=== PATIENT | female | born 1945 | race Caucasian/White ===

== ENCOUNTER 2016-10-07 09:44 | Emergency (ER) | payer MEDICARE, OTHER ==
[~2016-10-07] VITALS: Ht 160 cm; Wt 85.5 kg
[~2016-10-07 09:44] MED LIST: ASPI81 PO; DIOV80TA2 PO; DOXY100T PO; LORTA5 PO; PAXI25TA3 PO; ROSU20 PO; VITA500S3 SL
[2016-10-07 09:49] VITALS: BP 140/76; PULSE 79; RESP 16; TEMP 98; O2SAT 96
[2016-10-07] MEDS ORDERED: VALS80TA2 PO (10:07)
[2016-10-07] MEDS ORDERED: ROSU10 PO (10:07)
[2016-10-07] MEDS ORDERED: PARO25TA PO (10:07)
[2016-10-07] MEDS ORDERED: METF500T PO (10:07)
[2016-10-07] MEDS ORDERED: ASPI1TAB69 PO (10:07)
[2016-10-07] MEDS ORDERED: HYDR-3516 PO (10:38)
--- NOTE | 2016-10-07 10:38 | PD ---
HPI Chief Complaint: Musculoskeletal Complaint Time Seen by Provider: 10:34 Travel History International Travel<30 days: No Contact w/Intl Traveler<30days: No Traveled to known affect area: No History of Present Illness HPI Patient presents with complaints of right distal biceps pain for several months. Reports hearing something pop while lifting. Reports the recent development of a small bruise over the distal biceps with worsening of pain. She is medicated with her primary care provider and has undergone an MRI. Requesting pain control. PFSH Past Medical History Autoimmune Disease: No Anxiety: Yes Depression: Yes Heart Rhythm Problems: No Cancer: No Cardiac Catheterization: Yes Cardiovascular Problems: Yes High Cholesterol: Yes Chest Pain: No Congestive Heart Failure: No Coronary Artery Disease: Yes Diabetes: Yes ("BORDERLINE") Patient Takes Glucophage: Yes Diminished Hearing: No Endocrine: Yes Gastrointestinal Disorders: Yes (HX: GASTRIC BYPASS 1 YR AGO) GERD: No Glaucoma: No Genitourinary: No Hepatitis: No Hiatal Hernia: No Hypertension: Yes Immune Disorder: No Kidney Stones: Yes (1968) Musculoskeletal: No Neurologic: No Psychiatric: Yes Reproductive: No Respiratory: Yes Integumentary: No Sleep Apnea: Yes Thyroid Disease: No Ulcer: No Influenza Vaccination: Yes ?: Not Menopausal: Yes Past Surgical History Abdominal Surgery: Yes (BARIATRIC) Body Medical Devices: x2 cardiac stents Cardiac Surgery: Yes (2 stents RCA) Coronary Stent: Yes Ear Surgery: No Endocrine Surgery: Yes Eye Surgery: Yes (Lasik 20 years ago) Genitourinary Surgery: No Gynecologic Surgery: Yes Oral Surgery: Yes (1951 tonsilectomy) Thoracic Surgery: No Tonsillectomy: Yes Other Surgery: Yes (PILONIDAL CYST, FATTY TUMOR REMOVED FROM LEG) Social History Alcohol Use: Yes (DAILY BLOODY GAYLE'S) Tobacco Use: No Substance Use: No Allergies-Medications (Allergen,Severity, Reaction): Coded Allergies: No Known Allergies (Verified , 10/07/16) Reported Meds & Prescriptions Reported Meds & Active Scripts Active Reported Metformin (Metformin HCl) 500 Mg Tab 500 Mg PO DAILY With a meal Aspirin 81 Mg Tabdr 81 Mg PO DAILY Valsartan-Hydrochlorothiazide 80-12.5 Mg Tab 1 Tab PO DAILY Paroxetine ER (Paroxetine HCl) 25 Mg Tab 25 Mg PO DAILY Crestor (Rosuvastatin Calcium) 10 Mg Tab 10 Mg PO DAILY Review of Systems General / Constitutional: No: Fever Eyes: No: Visual changes HENT: No: Headaches Cardiovascular: No: Chest Pain or Discomfort Respiratory: No: Shortness of Breath Gastrointestinal: No: Abdominal Pain Genitourinary: No: Dysuria Musculoskeletal: No: Pain Skin: No Rash Neurologic: No: Weakness Psychiatric: No: Depression Endocrine: No: Polydipsia Hematologic/Lymphatic: No: Easy Bruising Physical Exam Narrative GENERAL: Well-nourished, well-developed patient. SKIN: Focused skin assessment warm/dry. HEAD: Normocephalic. EYES: No scleral icterus. No injection or drainage. NECK: Supple, trachea midline. No JVD or lymphadenopathy. CARDIOVASCULAR: Regular rate and rhythm without murmurs, gallops, or rubs. RESPIRATORY: Breath sounds equal bilaterally. No accessory muscle use. GASTROINTESTINAL: Abdomen soft, non-tender, nondistended. MUSCULOSKELETAL: No cyanosis, or edema. BACK: Nontender without obvious deformity. No CVA tenderness. Examination of the right biceps reveals small hematoma with ecchymosis measuring approximately 6-7 cm with pain/discomfort with flexion Data Data Last Documented VS Vital Signs Date Time Temp Pulse Resp B/P Pulse Ox O2 Delivery O2 Flow Rate FiO2 10/07/16 09:49 98.0 79 16 140/76 96 MDM Medical Decision Making Medical Screen Exam Complete: Yes Emergency Medical Condition: Yes Differential Diagnosis Biceps tear, biceps strain, hematoma Narrative Course Assessment and plan discussed with patient at bedside Diagnosis Primary Impression: Strain of right biceps Qualified Code: S46.211D - Strain of right biceps, subsequent encounter Patient Instructions: General Instructions Additional Instructions: Encouraged a sling for comfort, encouraged general range of motion exercises, discouraged any heavy lifting, follow-up with PCP to assess MRI and further plan of care Med/Other Pt SpecificInfo: Prescription(s) given Scripts Hydrocodone-Acetaminophen 5-325 mg Tab1 Tab PO Q6H PRN (PAIN) #30 TAB Ref 0 Prov:Bismark Kennedy MD 10/07/16 Disposition: 01 DISCHARGE HOME Condition: Good Bismark Kennedy MD Oct 07, 2016 10:38
== END 2016-10-07 10:48 | disposition home or self-care (01) ==
LOC: PHEFT 09:44
DX: S46.211A Strain of muscle, fascia and tendon of other parts of biceps, right arm, initial encounter (principal); F41.9 Anxiety disorder, unspecified; F32.9 Major depressive disorder, single episode, unspecified; E78.00 Pure hypercholesterolemia, unspecified; I25.10 Atherosclerotic heart disease of native coronary artery without angina pectoris; E11.9 Type 2 diabetes mellitus without complications; I10 Essential (primary) hypertension; X50.0XXA Overexertion from strenuous movement or load, initial encounter
CPT/HCPCS: 99283

== ENCOUNTER 2018-08-23 13:50 | Inpatient (IN) ==
[2018-08-23] MEDS ORDERED: Pantoprazole Inj 40 MG Vial IV.PUSH ONE (14:19)
--- NOTE | 2018-08-23 14:32 | ED ---
HPI General Chief complaint: Weakness Stated complaint: weakness/nausea/blood in stool Time Seen by Provider: 08/23/18 14:06 Source: patient Mode of arrival: ambulatory Limitations: no limitations History of Present Illness HPI narrative: 73-year-old female is complaining of severe weakness. She was an inpatient earlier in this month. She was admitted to the hospital after vomiting blood. She was given a bag of blood and had upper endoscopy which showed that she had a gastrojejunal ulcer at the anastomosis of her gastric bypass. There was no evidence of active bleeding at that time. She went home and started to feel a bit better but then has started to feel badly again. She saw her doctor yesterday and was having some trouble walking at that time. She has not been eating well. She has been passing black stool. She has gotten progressively weak over the last few days. She is a bit short of breath today. Related Data Home Medications Medication Instructions Recorded Confirmed Crestor PO HS 08/11/18 anastrozole 1 mg PO DAILY 08/11/18 08/23/18 aspirin [Aspir-81] 81 mg PO DAILY 08/11/18 08/23/18 metformin 500 mg PO DAILY 08/11/18 08/23/18 paroxetine HCl PO DAILY 08/11/18 valsartan-hydrochlorothiazide 1 tab PO DAILY 08/11/18 08/23/18 Previous Rx's Medication Instructions Recorded pantoprazole 40 mg PO BID 30 Days #120 tab 08/12/18 Allergies Allergy/AdvReac Type Severity Reaction Status Date / Time No Known Allergies Allergy Verified 08/11/18 04:30 Review of Systems Constitutional Reports poor appetite and Reports weakness Cardiovascular Denies chest pain Gastrointestinal Reports change in stool character, Reports dyspepsia and Reports loose stools PMFSH Medical History Medical History Breast cancer (Acute) Diabetes (Acute) Gastric ulcer (Acute) High cholesterol (Acute) Hypertension (Acute) Surgical History Surgical History H/O breast surgery (Acute) H/O gastric bypass (Acute) H/O heart artery stent (Acute) Social History Social History Substance History: No History of Abuse Second Hand Smoke Exposure: No Smoking Status: Former smoker Tobacco Type: Cigarettes How Often Do You Have a Drink Containing Alcohol: 2 to 3 times a week Recent Travel in [facility] within the Last 8 Weeks: No Recent Out of Country Travel within the Last 8 Weeks: No Immunization History Tetanus Immunization: <5 Years Exam Narrative Exam Narrative: GENERAL: Well-developed female. She is extremely pale SKIN: Focused skin assessment warm/dry. HEAD: Atraumatic. Normocephalic. EYES: Pupils equal and round. No scleral icterus. No injection or drainage. ENT: No nasal bleeding or discharge. Mucous membranes pink and moist. NECK: Trachea midline. No JVD. CARDIOVASCULAR: Regular rate and rhythm. No murmur appreciated. RESPIRATORY: No accessory muscle use. Clear to auscultation. Breath sounds equal bilaterally. GASTROINTESTINAL: Abdomen soft, there is mild diffuse tenderness r, nondistended. Hepatic and splenic margins not palpable. On rectal exam stool is black and strongly positive for blood MUSCULOSKELETAL: No obvious deformities. No clubbing. No cyanosis. No edema. NEUROLOGICAL: Awake and alert. No obvious cranial nerve deficits. Motor grossly within normal limits. Normal speech. PSYCHIATRIC: Appropriate mood and affect; insight and judgment normal. Course Initial Documented Vital Signs Temperature 97.4 F L 08/23/18 13:54 Pulse Rate 92 H 08/23/18 13:54 Respiratory Rate 34 H 08/23/18 13:54 Blood Pressure 91/58 L 08/23/18 13:54 Pulse Oximetry 88 L 08/23/18 13:54 Last Documented Vital Signs Temperature 97.4 F L 08/23/18 13:54 Pulse Rate 88 08/23/18 14:15 Respiratory Rate 30 H 08/23/18 14:15 Blood Pressure 117/54 L 08/23/18 14:15 Pulse Oximetry 100 08/23/18 14:15 Medical Decision Making MDM Narrative Medical decision making narrative: Patient has been started on Protonix drip. Her hemoglobin has come back at 5.6. Preparations are being made for transfusion Medical Screen Exam Complete: Yes Emergency Medical Condition: Yes Differential Diagnosis Differential Diagnosis: Differential includes GI bleed, anemia Lab Data Result diagrams: 08/23/18 14:35 08/23/18 14:35 Lab Results 08/23/18 08/23/18 08/23/18 Range/Units 14:35 14:35 14:35 CBC w Diff Slide review pending WBC 8.6 (4.0-11.0) th/mm3 RBC 2.03 L (4.00-5.30) mil/mm3 Hgb 5.8 L* (11.6-15.3) gm/dL Hct 17.7 L* (35.0-46.0) % MCV 87.3 (80.0-100.0) fL MCH 28.9 (27.0-34.0) pg MCHC 33.0 (32.0-36.0) % RDW 16.4 (11.6-17.2) % Plt Count 348 D (150-450) th/mm3 MPV 9.1 (7.0-11.0) fL Neut % (Auto) 72.9 H (16.0-70.0) % Lymph % (Auto) 20.5 (9.0-44.0) % Polk % (Auto) 6.1 (0.0-8.0) % Eos % (Auto) 0.2 (0.0-4.0) % Baso % (Auto) 0.3 (0.0-2.0) % Neut # (Auto) 6.3 (1.8-7.7) th/mm3 Lymph # (Auto) 1.8 (1.0-4.8) th/mm3 Polk # (Auto) 0.5 (0.0-0.9) th/mm3 Eos # (Auto) 0.0 (0.0-0.4) th/mm3 Baso # (Auto) 0.0 (0.0-0.2) th/mm3 Differential Comment . PT 10.0 (9.8-11.6) sec INR 1.0 Ratio APTT 22.6 L (23.4-31.7) sec Sodium (136-145) meq/L Potassium (3.5-5.1) meq/L Chloride (98-107) meq/L Carbon Dioxide (21.0-32.0) meq/L Anion Gap (5-15) meq/L BUN (7-18) mg/dL Creatinine (0.50-1.00) mg/dL Estimated GFR (>89) mL/min Random Glucose (74-106) mg/dL Calcium (8.5-10.1) mg/dL Total Bilirubin (0.2-1.0) mg/dL AST (15-37) U/L ALT (10-53) U/L Alkaline Phosphatase (45-117) U/L Total Protein (6.4-8.2) g/dL Albumin (3.4-5.0) g/dL MTS Gel Crossmatch See Detail 08/23/18 Range/Units 14:35 CBC w Diff WBC (4.0-11.0) th/mm3 RBC (4.00-5.30) mil/mm3 Hgb (11.6-15.3) gm/dL Hct (35.0-46.0) % MCV (80.0-100.0) fL MCH (27.0-34.0) pg MCHC (32.0-36.0) % RDW (11.6-17.2) % Plt Count (150-450) th/mm3 MPV (7.0-11.0) fL Neut % (Auto) (16.0-70.0) % Lymph % (Auto) (9.0-44.0) % Polk % (Auto) (0.0-8.0) % Eos % (Auto) (0.0-4.0) % Baso % (Auto) (0.0-2.0) % Neut # (Auto) (1.8-7.7) th/mm3 Lymph # (Auto) (1.0-4.8) th/mm3 Polk # (Auto) (0.0-0.9) th/mm3 Eos # (Auto) (0.0-0.4) th/mm3 Baso # (Auto) (0.0-0.2) th/mm3 Differential Comment PT (9.8-11.6) sec INR Ratio APTT (23.4-31.7) sec Sodium 136 (136-145) meq/L Potassium 3.7 (3.5-5.1) meq/L Chloride 103 (98-107) meq/L Carbon Dioxide 20.5 L (21.0-32.0) meq/L Anion Gap 13 (5-15) meq/L BUN 31 H (7-18) mg/dL Creatinine 0.92 (0.50-1.00) mg/dL Estimated GFR 60 L (>89) mL/min Random Glucose 134 H (74-106) mg/dL Calcium 8.9 (8.5-10.1) mg/dL Total Bilirubin 0.4 (0.2-1.0) mg/dL AST 9 L (15-37) U/L ALT 11 (10-53) U/L Alkaline Phosphatase 79 (45-117) U/L Total Protein 5.5 L (6.4-8.2) g/dL Albumin 2.7 L (3.4-5.0) g/dL MTS Gel Crossmatch Discharge Plan Discharge Disposition Patient Disposition: ED Admit(ED Internal Use Only) Discharge Condition Condition: Fair Discharge Details Diagnosis: GI bleed Physicians Team ED Provider: Manolo Gong Primary Care Provider: Shonda Werner Rxs /Orders / Referrals /Forms Prescriptions: No Action metformin 500 mg Tablet 500 mg PO DAILY RF: 0 anastrozole 1 mg Tablet 1 mg PO DAILY RF: 0 aspirin [Aspir-81] 81 mg Tablet,Delayed Release (Dr/Ec) 81 mg PO DAILY RF: 0 valsartan-hydrochlorothiazide 80-12.5 mg Tablet 1 tab PO DAILY RF: 0 Crestor PO HS RF: 0 paroxetine HCl PO DAILY RF: 0 pantoprazole 20 mg Tablet,Delayed Release (Dr/Ec) 40 mg PO BID 30 Days Qty: 120 RF: 0 Discharge Interventions Interventions: Vital Signs Last Done: 08/23/18 14:15 Status ED Status: With Doctor
[2018-08-23] MEDS: Sod Chloride 0.9% Inj 1,000 ML IV.CONT SCH (14:39)
[2018-08-23 15:00] LABS: Baso % (Auto) 0.3 % (0.0-2.0); Eos % (Auto) 0.2 % (0.0-4.0); Lymph # (Auto) 1.8 th/mm3 (1.0-4.8); Lymph % (Auto) 20.5 % (9.0-44.0); Mean Corpuscular Hemoglobin 28.9 pg (27.0-34.0); Mean Corpuscular Volume 87.3 fL (80.0-100.0); Mean Platelet Volume 9.1 fL (7.0-11.0); Mono # (Auto) 0.5 th/mm3 (0.0-0.9); Mono % (Auto) 6.1 % (0.0-8.0); Neut # (Auto) 6.3 th/mm3 (1.8-7.7); Neut % (Auto) 72.9 % (16.0-70.0); Platelet Count 348 th/mm3 (150-450); Red Blood Count 2.03 mil/mm3 (4.00-5.30); Red Cell Distribution Width 16.4 % (11.6-17.2); White Blood Count 8.6 th/mm3 (4.0-11.0)
[2018-08-23 15:04] LABS: Chloride 103 meq/L (98-107); Potassium 3.7 meq/L (3.5-5.1); Sodium 136 meq/L (136-145)
[2018-08-23 15:06] LABS: Hemoglobin 5.8 gm/dL (11.6-15.3)
[2018-08-23 15:07] LABS: Albumin 2.7 g/dL (3.4-5.0); Anion Gap 13 meq/L (5-15); Calcium 8.9 mg/dL (8.5-10.1); Carbon Dioxide 20.5 meq/L (21.0-32.0); Glucose,Random 134 mg/dL (74-106); Hematocrit 17.7 % (35.0-46.0)
[2018-08-23 15:08] LABS: Blood Urea Nitrogen 31 mg/dL (7-18)
[2018-08-23 15:09] LABS: Activated Partial Thrombo Time 22.6 sec (23.4-31.7)
[2018-08-23 15:10] LABS: Alanine Aminotransferase 11 U/L (10-53)
[2018-08-23 15:11] LABS: Aspartate Aminotransferase 9 U/L (15-37); Glomerular Filtration Rate 60 mL/min (>89)
[2018-08-23 15:12] LABS: Total Protein 5.5 g/dL (6.4-8.2)
[2018-08-23 15:13] LABS: Alkaline Phosphatase 79 U/L (45-117)
[2018-08-23] MEDS: Pantoprazole Inj 80 MG in Sodium Chlor 0.9% Inj 100 ML IV.CONT SCH (15:14)
[2018-08-23] MEDS ORDERED: Bisacodyl 10 MG Supp RECTAL PRN (15:33)
[2018-08-23] MEDS ORDERED: Acetaminophen 325 MG Tablet PO PRN (15:33)
[2018-08-23] MEDS ORDERED: Dextrose 50% in Water 50 ML Vial IV.PUSH PRN (15:34)
[2018-08-23 15:38] LABS: Platelet Estimate Normal (Normal); Platelet Morphology Normal (Normal)
--- NOTE | 2018-08-23 15:48 | P.HPIM ---
History of Present Illness Primary Care Physician: Shonda Werner DO Chief Complaint: GI bleed History of Present Illness: This is a 73-year-old female patient with no medical history of breast cancer currently on p.o. chemotherapy, diabetes, dyslipidemia, CAD with history of cardiac stent placement and history of gastric bypass who presented to the ED with complaints of generalized weakness and black movements. She was just recently hospitalized for acute symptomatic blood loss anemia secondary to upper GI bleed. At that time GI was consulted and an EGD was done showing a gastric ulcer at the GJ junction where she had her gastric bypass surgery. She was stabilized and sent home on Protonix. Patient states that she took the Protonix for roughly a week and states that she started to notice black bowel movements again. She states that over the last week she is been having generalized weakness as well. Patient presented with a hemoglobin of 5.8. Has been admitted for blood transfusion and gastroenterology consult. Review of Systems Review of Systems: all other systems reviewed are negative [facility] Medical History Medical History Breast cancer (Acute) Diabetes (Acute) Gastric ulcer (Acute) High cholesterol (Acute) Hypertension (Acute) Surgical History Surgical History H/O breast surgery (Acute) H/O gastric bypass (Acute) H/O heart artery stent (Acute) Social History Social History Substance History: No History of Abuse Second Hand Smoke Exposure: No Smoking Status: Former smoker Tobacco Type: Cigarettes How Often Do You Have a Drink Containing Alcohol: 2 to 3 times a week Recent Travel in [facility] within the Last 8 Weeks: No Recent Out of Country Travel within the Last 8 Weeks: No Immunization History Tetanus Immunization: <5 Years Medications and Allergies Allergies Allergy/AdvReac Type Severity Reaction Status Date / Time No Known Allergies Allergy Verified 08/11/18 04:30 Home Medications Medication Instructions Recorded Confirmed Type Crestor PO HS 08/11/18 History anastrozole 1 mg PO DAILY 08/11/18 08/23/18 History aspirin [Aspir-81] 81 mg PO DAILY 08/11/18 08/23/18 History metformin 500 mg PO DAILY 08/11/18 08/23/18 History paroxetine HCl PO DAILY 08/11/18 History valsartan-hydrochlorothiazide 1 tab PO DAILY 08/11/18 08/23/18 History Active Medications: Active Medications Acetaminophen (Tylenol) 650 mg PO Q4H PRN PRN Reason: Temp > 100.4 Al Hydroxide/Mg Hydroxide (Milk Of Magnesia Liq) 30 ml PO Q12H PRN PRN Reason: Mild Constipation Anastrozole (Arimidex) 1 mg PO DAILY GHULAM Bisacodyl (Dulcolax Supp) 10 mg RECTAL DAILY PRN PRN Reason: SEVERE CONSITIPATION Dextrose (D50w Vial) 50 ml IV.PUSH UNSCH PRN PRN Reason: PER HYPOGLYCEMIA PROTOCOL Glucagon (Glucagon Inj) 1 mg OTHER PRN PRN PRN Reason: for Hypoglycemia Protocol Sodium Chloride (Ns Inj) 1,000 mls @ 125 mls/hr IV.CONT .Q8H [facility] Last Admin: 08/23/18 14:39 Dose: 125 mls/hr Pantoprazole Sodium 80 mg/ (Sodium Chloride) 100 mls @ 10 mls/hr IV.CONT CONT GHULAM Last Admin: 08/23/18 15:14 Dose: 10 mls/hr Insulin Aspart (Novolog Insulin Correctional Sugar Inj) 0 unit SQ ACHS GHULAM; Protocol Lactulose (Lactulose Liq) 30 ml PO DAILY PRN PRN Reason: SEVERE CONSITIPATION Non-Formulary Medication (Valsartan-Hydrochlorothiazide [Valsartan- Hydrochlorothiazide]) 1 tab PO DAILY [facility] Ondansetron HCl (Zofran Inj) 4 mg IV.PUSH Q6H PRN PRN Reason: NAUSEA OR VOMITING Sennosides (Senokot) 17.2 mg PO Q12H PRN PRN Reason: Moderate Constipation Sodium Chloride (Ns Flush) 2 ml IV.FLUSH PRN PRN PRN Reason: FLUSH AFTER USING IV ACCESS Sodium Chloride (Ns Flush) 2 ml IV.FLUSH BID GHULAM Sodium Chloride (Ns Flush) 2 ml IV.FLUSH PRN PRN PRN Reason: FLUSH AFTER USING IV ACCESS Physical Exam Vital signs: Vital Signs 08/23/18 13:54 08/23/18 14:15 Temperature 97.4 F L Pulse Rate 92 H 88 Respiratory Rate 34 H 30 H Blood Pressure 91/58 L 117/54 L Pulse Oximetry 88 L 100 Intake & Output 08/22/18 08/23/18 08/23/18 18:59 06:59 18:59 Weight 84 kg Narrative: GENERAL: Well-developed, well-nourished patient in NAD. SKIN: Warm and dry. No rash. Pale. HEAD: Normocephalic. Atraumatic. EYES: Pupils equal and round. No scleral icterus. No injection or drainage. ENT: No nasal bleeding or discharge. Mucous membranes pink and moist. NECK: Supple. Trachea midline. CARDIOVASCULAR: Regular rate and rhythm. S1, S2 noted. RESPIRATORY: No accessory muscle use. Clear to auscultation. Breath sounds equal bilaterally. GASTROINTESTINAL: Abdomen soft, non-tender, nondistended. Normoactive bowel sounds x4. MUSCULOSKELETAL: No obvious deformities. Extremities without clubbing, cyanosis , or edema. NEUROLOGICAL: Awake and alert. No obvious cranial nerve deficits. Motor grossly within normal limits. 5/5 muscle strength in bilateral upper and lower extremities. Normal speech. PSYCHIATRIC: Appropriate mood and affect; insight and judgment normal. Results Labs CBC & Chem 7: 08/23/18 14:35 08/23/18 14:35 Caprini VTE Risk Assessment Caprini VTE Risk Assessment: Moderate/High Risk (score >= 2) Caprini Risk Assessment Model: Point Value = 1 Point Value = 2 Point Value = 3 Point Value = 5 Age 41-60 Minor surgery BMI > 25 kg/m2 Swollen legs Varicose veins or History of unexplained or recurrent spontaneous Oral contraceptives or hormone replacement Sepsis (< 1 month) Serious lung disease, including pneumonia (< 1 month) Abnormal pulmonary function Acute myocardial infarction Congestive heart failure (< 1 month) History of inflammatory bowel disease Medical patient at bed rest Age 61-74 Arthroscopic surgery Major open surgery (> 45 min) Laparoscopic surgery (> 45 min) Malignancy Confined to bed (> 72 hours) Immobilizing plaster cast Central venous access Age >= 75 History of VTE Family history of VTE Factor V Leiden Prothrombin [id number] Lupus anticoagulant Anticardiolipin antibodies Elevated serum homocysteine Heparin-induced thrombocytopenia Other congenital or acquired thrombophilia Stroke (< 1 month) Elective arthroplasty Hip, pelvis, or leg fracture Acute spinal cord injury (< 1 month) Prophylaxis Regimen: Total Risk Factor Score Risk Level Prophylaxis Regimen 0-1 Low Early ambulation 2 Moderate Order ONE of the following: *Sequential Compression Device (SCD) *Heparin 5000 units SQ BID 3-4 Higher Order ONE of the following medications: *Heparin 5000 units SQ TID *Enoxaparin/Lovenox 40 mg SQ daily (WT < 150 kg, CrCl > 30 mL/min) *Enoxaparin/Lovenox 30 mg SQ daily (WT < 150 kg, CrCl > 10-29 mL/min) *Enoxaparin/Lovenox 30 mg SQ BID (WT < 150 kg, CrCl > 30 mL/min) AND/OR *Sequential Compression Device (SCD) 5 or more Highest Order ONE of the following medications: *Heparin 5000 units SQ TID (Preferred with Epidurals) *Enoxaparin/Lovenox 40 mg SQ daily (WT < 150 kg, CrCl > 30 mL/min) *Enoxaparin/Lovenox 30 mg SQ daily (WT < 150 kg, CrCl > 10-29 mL/min) *Enoxaparin/Lovenox 30 mg SQ BID (WT < 150 kg, CrCl > 30 mL/min) AND *Sequential Compression Device (SCD) Assessment and Plan Plan This is a 73-year-old female patient with a known medical history of breast cancer on p.o. chemotherapy, diabetes, dyslipidemia, CAD with cardiac stent placement and history of gastric bypass who presented to the ED with complaints generalized weakness and black bowel movements. Acute symptomatic blood loss anemia secondary to upper GI bleed -Patient complaints of generalized weakness and black bowel movements for about a week. -Recent upper GI bleed with hospitalization, discharged on 08/12/2018 and underwent EGD with findings significant for GJ ulcer at the anastomosis of her gastric bypass. -Hemoglobin 5.8/Hematocrit 17.7 on presentation. -2 units PRBC ordered for transfusion. Will trend H&H. Monitor for any active bleeding. -Started on Protonix gtt. Continue. -GI has been consulted, input and recommendations for EGD/colonoscopy tomorrow. Will tx to [facility] for procedure in am. -Clear liquids tonight. NPO after midnight. -Ensure hydration, continue IV gentle hydration. -Supportive care. Hypertension -Continue to monitor blood pressure trends. -Continue home medications. Type 2 diabetes mellitus -ACCU check ACHS, sliding scale, cover as needed. -Monitor blood sugar trends. History of CAD with cardiac stent placement -Hold aspirin for now secondary to acute anemia. -Defer to GI to restart. History of breast cancer -Continue home anastrozole. DVT Prophylaxis: SCDs. Hold chemical prophylaxis for now secondary to acute anemia. D/w patient, Dr. Light and Dr. Hilliard.
[2018-08-23] MEDS: Insulin NovoLOG Aspart Correctional Sugar Inj SQ SCH ×2 (16:31→21:35)
[2018-08-23] MEDS ORDERED: PEG 3350/E-Lyte Soln 4000 ML Bottle PO ONE (17:07)
[2018-08-24] MEDS: Sod Chloride 0.9% Inj 1,000 ML IV.CONT SCH ×4 (02:10→17:11)
[2018-08-24] MEDS: Pantoprazole Inj 80 MG in Sodium Chlor 0.9% Inj 100 ML IV.CONT SCH ×2 (02:45→17:12)
[2018-08-24 06:23] LABS: Baso % (Auto) 0.5 % (0.0-2.0); Eos # (Auto) 0.1 th/mm3 (0.0-0.4); Eos % (Auto) 0.8 % (0.0-4.0); Lymph # (Auto) 1.9 th/mm3 (1.0-4.8); Lymph % (Auto) 29.1 % (9.0-44.0); Mean Corpuscular HGB Conc 33.7 % (32.0-36.0); Mean Corpuscular Volume 86.2 fL (80.0-100.0); Mean Platelet Volume 8.4 fL (7.0-11.0); Mono # (Auto) 0.6 th/mm3 (0.0-0.9); Mono % (Auto) 9.3 % (0.0-8.0); Neut % (Auto) 60.3 % (16.0-70.0); Platelet Count 235 th/mm3 (150-450); Red Blood Count 2.35 mil/mm3 (4.00-5.30); Red Cell Distribution Width 16.3 % (11.6-17.2); White Blood Count 6.6 th/mm3 (4.0-11.0)
[2018-08-24 06:28] LABS: Hematocrit 20.3 % (35.0-46.0); Hemoglobin 6.8 gm/dL (11.6-15.3)
[2018-08-24 06:53] LABS: Calcium 8.6 mg/dL (8.5-10.1); Carbon Dioxide 26.3 meq/L (21.0-32.0); Potassium 3.7 meq/L (3.5-5.1)
[2018-08-24] MEDS ORDERED: Sodium Chlor 0.9% Inj 250 ML IV.SIG SCH (07:00)
[2018-08-24] MEDS: Insulin NovoLOG Aspart Correctional Sugar Inj SQ SCH ×4 (08:41→20:26)
[2018-08-24] MEDS ORDERED: Non-Formulary Drug (Valsartan-Hydrochlorothiazide [Valsartan-Hydrochlorothiazide] 1 TAB) PO SCH (09:00)
[2018-08-24] MEDS: Anastrozole 1 MG Tablet PO SCH (10:12)
--- NOTE | 2018-08-24 11:47 | P.CONGI ---
History of Present Illness Consult date: 08/24/18 Requesting physician: Aixa Chakraborty Chief complaint: gi bleed History of Present Illness: 73-year-old female with history of breast cancer, diabetes, dyslipidemia and coronary artery disease with stents, status post gastric bypass with recent upper GI bleeding from a gastric ulcer at the JG junction/anastomosis. Patient was recently discharged home and pantoprazole and was doing well for approximately 1 week before she started experiencing weakness, fatigue shortness of breath and black diarrhea for the past several days. On admission hemoglobin was 5.8. She is currently being transfused. Denies abdominal pain. Denies nausea or vomiting. Last EGD August 11, 2018. <Juany Hoover - Last Filed: 08/24/18 11:57> PMFSH - History History Provided By: Patient - Medical History Medical History: Medical History (Last Reviewed 08/24/18 @ 10:48 by Connie Quinteros) Breast cancer Diabetes Gastric ulcer High cholesterol Hypertension - Surgical History Surgical History: Surgical History (Last Reviewed 08/24/18 @ 10:48 by Connie Quinteros) H/O breast surgery H/O gastric bypass H/O heart artery stent - Family History Family History: Family History (Last Reviewed 08/24/18 @ 10:48 by Connie Quinteros) Other Family history non-contributory - Tobacco History Second Hand Smoke Exposure: No Smoking Status: Former smoker Tobacco Type: Cigarettes - Alcohol History How Often Do You Have a Drink Containing Alcohol: 2 to 3 times a week - Substance Use History Substance History: No History of Abuse - Travel History Recent Travel in the [place] Within the Last 8 Weeks: No Recent Travel Out of the Country Within the Last 8 Weeks: No - Immunization History Tetanus Immunization: <5 Years <Juany Hoover - Last Filed: 08/24/18 11:57> - Medical History Medical History: Medical History (Last Reviewed 08/24/18 @ 10:48 by Connie Quinteros) Breast cancer Diabetes Gastric ulcer High cholesterol Hypertension - Surgical History Surgical History: Surgical History (Last Reviewed 08/24/18 @ 10:48 by Connie Quinteros) H/O breast surgery H/O gastric bypass H/O heart artery stent - Family History Family History: Family History (Last Reviewed 08/24/18 @ 10:48 by Connie Quinteros) Other Family history non-contributory <Paxton Hilliard E - Last Filed: 08/24/18 15:34> Medications and Allergies Active Medications: Active Medications Acetaminophen (Tylenol) 650 mg PO Q4H PRN PRN Reason: Temp > 100.4 Al Hydroxide/Mg Hydroxide (Milk Of Magnesia Liq) 30 ml PO Q12H PRN PRN Reason: Mild Constipation Anastrozole (Arimidex) 1 mg PO DAILY [facility] Last Admin: 08/24/18 10:12 Dose: 1 mg Bisacodyl (Dulcolax Supp) 10 mg RECTAL DAILY PRN PRN Reason: SEVERE CONSITIPATION Dextrose (D50w Vial) 50 ml IV.PUSH UNSCH PRN PRN Reason: PER HYPOGLYCEMIA PROTOCOL Glucagon (Glucagon Inj) 1 mg OTHER PRN PRN PRN Reason: for Hypoglycemia Protocol Sodium Chloride (Ns Inj) 1,000 mls @ 125 mls/hr IV.CONT .Q8H [facility] Last Admin: 08/24/18 10:03 Dose: 125 mls/hr Pantoprazole Sodium 80 mg/ (Sodium Chloride) 100 mls @ 10 mls/hr IV.CONT CONT [facility] Last Admin: 08/24/18 02:45 Dose: 10 mls/hr Sodium Chloride (Ns Inj) 250 mls @ 15 mls/hr IV.SIG ONCE [facility] Stop: 08/24/18 23:39 Last Admin: 08/24/18 09:45 Dose: 15 mls/hr Insulin Aspart (Novolog Insulin Correctional Sugar Inj) 0 unit SQ ACHS [facility]; Protocol Last Admin: 08/24/18 08:41 Dose: Not Given Lactulose (Lactulose Liq) 30 ml PO DAILY PRN PRN Reason: SEVERE CONSITIPATION Non-Formulary Medication (Valsartan-Hydrochlorothiazide [Valsartan- Hydrochlorothiazide]) 1 tab PO DAILY [facility] Last Admin: 08/24/18 10:41 Dose: Not Given Ondansetron HCl (Zofran Inj) 4 mg IV.PUSH Q6H PRN PRN Reason: NAUSEA OR VOMITING Last Admin: 08/24/18 00:16 Dose: 4 mg Sennosides (Senokot) 17.2 mg PO Q12H PRN PRN Reason: Moderate Constipation Sodium Chloride (Ns Flush) 2 ml IV.FLUSH PRN PRN PRN Reason: FLUSH AFTER USING IV ACCESS Sodium Chloride (Ns Flush) 2 ml IV.FLUSH BID [facility] Last Admin: 08/24/18 10:02 Dose: Not Given Sodium Chloride (Ns Flush) 2 ml IV.FLUSH PRN PRN PRN Reason: FLUSH AFTER USING IV ACCESS <Juany Hoover Dewayne - Last Filed: 08/24/18 11:57> Active Medications: Active Medications Acetaminophen (Tylenol) 650 mg PO Q4H PRN PRN Reason: Temp > 100.4 Al Hydroxide/Mg Hydroxide (Milk Of Magnesia Liq) 30 ml PO Q12H PRN PRN Reason: Mild Constipation Anastrozole (Arimidex) 1 mg PO DAILY [facility] Last Admin: 08/24/18 10:12 Dose: 1 mg Bisacodyl (Dulcolax Supp) 10 mg RECTAL DAILY PRN PRN Reason: SEVERE CONSITIPATION Dextrose (D50w Vial) 50 ml IV.PUSH UNSCH PRN PRN Reason: PER HYPOGLYCEMIA PROTOCOL Glucagon (Glucagon Inj) 1 mg OTHER PRN PRN PRN Reason: for Hypoglycemia Protocol Sodium Chloride (Ns Inj) 1,000 mls @ 125 mls/hr IV.CONT .Q8H [facility] Last Admin: 08/24/18 10:03 Dose: 125 mls/hr Pantoprazole Sodium 80 mg/ (Sodium Chloride) 100 mls @ 10 mls/hr IV.CONT CONT [facility] Last Admin: 08/24/18 02:45 Dose: 10 mls/hr Sodium Chloride (Ns Inj) 250 mls @ 15 mls/hr IV.SIG ONCE [facility] Stop: 08/24/18 23:39 Last Admin: 08/24/18 09:45 Dose: 15 mls/hr Insulin Aspart (Novolog Insulin Correctional Sugar Inj) 0 unit SQ ACHS [facility]; Protocol Last Admin: 08/24/18 12:17 Dose: Not Given Lactulose (Lactulose Liq) 30 ml PO DAILY PRN PRN Reason: SEVERE CONSITIPATION Non-Formulary Medication (Valsartan-Hydrochlorothiazide [Valsartan- Hydrochlorothiazide]) 1 tab PO DAILY [facility] Last Admin: 08/24/18 10:41 Dose: Not Given Ondansetron HCl (Zofran Inj) 4 mg IV.PUSH Q6H PRN PRN Reason: NAUSEA OR VOMITING Last Admin: 08/24/18 00:16 Dose: 4 mg Sennosides (Senokot) 17.2 mg PO Q12H PRN PRN Reason: Moderate Constipation Sodium Chloride (Ns Flush) 2 ml IV.FLUSH PRN PRN PRN Reason: FLUSH AFTER USING IV ACCESS Sodium Chloride (Ns Flush) 2 ml IV.FLUSH BID [facility] Last Admin: 08/24/18 10:02 Dose: Not Given Sodium Chloride (Ns Flush) 2 ml IV.FLUSH PRN PRN PRN Reason: FLUSH AFTER USING IV ACCESS <Paxton Hilliard E - Last Filed: 08/24/18 15:34> Allergies Allergy/AdvReac Type Severity Reaction Status Date / Time No Known Allergies Allergy Verified 08/11/18 04:30 Home Medications Medication Instructions Recorded Confirmed Type Crestor PO HS 08/11/18 History anastrozole 1 mg PO DAILY 08/11/18 08/23/18 History aspirin [Aspir-81] 81 mg PO DAILY 08/11/18 08/23/18 History metformin 500 mg PO DAILY 08/11/18 08/23/18 History paroxetine HCl PO DAILY 08/11/18 History valsartan-hydrochlorothiazide 1 tab PO DAILY 08/11/18 08/23/18 History Exam Vital signs: Vital Signs 08/23/18 13:54 08/23/18 14:15 08/23/18 14:17 Temperature 97.4 F L Pulse Rate 92 H 88 80 Respiratory Rate 34 H 30 H Blood Pressure 91/58 L 117/54 L Pulse Oximetry 88 L 100 100 08/23/18 15:15 08/23/18 16:15 08/23/18 19:50 Temperature 98.6 F Pulse Rate 83 81 89 Respiratory Rate 24 22 18 Blood Pressure 116/52 L 116/52 L 167/76 H Pulse Oximetry 100 96 100 08/23/18 20:28 08/23/18 21:17 08/23/18 23:58 Temperature 98.8 F 98.6 F Pulse Rate 93 H 89 81 Respiratory Rate 20 20 Blood Pressure 123/60 124/57 L Pulse Oximetry 100 08/24/18 00:05 08/24/18 03:59 08/24/18 08:44 Temperature 98.6 F 98.1 F Pulse Rate 80 86 Respiratory Rate 18 18 Blood Pressure 122/55 L 124/57 L Pulse Oximetry 99 97 95 08/24/18 09:45 08/24/18 10:04 Temperature 98.2 F 98.0 F Pulse Rate 97 H 72 Respiratory Rate 16 17 Blood Pressure 112/54 L 139/62 Pulse Oximetry Intake & Output 08/23/18 08/24/18 08/24/18 18:59 06:59 18:59 Intake Total 1900 / 1900 1000 / 1000 Output Total 800 / 800 Balance 1100 / 1100 1000 / 1000 Weight 84 kg 81.8 kg Intake: IV 1100 / 1100 1000 / 1000 Protonix Inj 80 MG In NS Inj 100 / 100 100 ML @ 10 mls/hr IV.CONT CONT [facility] Rx#:[id number] NS Inj 1,000 ML @ 125 mls/hr IV 1000 / 1000 1000 / 1000 .CONT .Q8H [facility] Rx#:[id number] Intake (Blood Product) Amt 800 / 800 0 / 0 Rbc As-3 Leukoreduced Unit 0 / 0 [id number] Rbc As-3 Leukoreduced Unit 400 / 400 [id number] Rbc As-3 Leukoreduced Unit 400 / 400 [id number] Output: Urine 650 / 650 Wound Vac Amount 150 / 150 Posterior Sacrum 150 / 150 Other: Mode Setting Posterior Sacrum Continuous # Voids 5 # Urine Diapers 1 Date of Last Bowel Movement 08/24/18 # Bowel Movements 4 <Juany Hoover - Last Filed: 08/24/18 11:57> Vital signs: Vital Signs 08/23/18 16:15 08/23/18 19:50 08/23/18 20:28 Temperature 98.6 F 98.8 F Pulse Rate 81 89 93 H Respiratory Rate 22 18 20 Blood Pressure 116/52 L 167/76 H 123/60 Pulse Oximetry 96 100 08/23/18 21:17 08/23/18 23:58 08/24/18 00:05 Temperature 98.6 F 98.6 F Pulse Rate 89 81 80 Respiratory Rate 20 18 Blood Pressure 124/57 L 122/55 L Pulse Oximetry 100 99 08/24/18 03:59 08/24/18 08:00 08/24/18 08:44 Temperature 98.1 F Pulse Rate 86 72 Respiratory Rate 18 Blood Pressure 124/57 L Pulse Oximetry 97 95 08/24/18 09:45 08/24/18 10:04 08/24/18 12:00 Temperature 98.2 F 98.0 F 98.5 F Pulse Rate 97 H 72 77 Respiratory Rate 16 17 16 Blood Pressure 112/54 L 139/62 131/66 Pulse Oximetry 98 Intake & Output 08/23/18 08/24/18 08/24/18 18:59 06:59 18:59 Intake Total 1900 / 1900 1000 / 1000 Output Total 800 / 800 Balance 1100 / 1100 1000 / 1000 Weight 84 kg 81.8 kg Intake: IV 1100 / 1100 1000 / 1000 Protonix Inj 80 MG In NS Inj 100 / 100 100 ML @ 10 mls/hr IV.CONT CONT [facility] Rx#:[id number] NS Inj 1,000 ML @ 125 mls/hr IV 1000 / 1000 1000 / 1000 .CONT .Q8H [facility] Rx#:[id number] Intake (Blood Product) Amt 800 / 800 0 / 0 Rbc As-3 Leukoreduced Unit 0 / 0 [id number] Rbc As-3 Leukoreduced Unit 400 / 400 [id number] Rbc As-3 Leukoreduced Unit 400 / 400 [id number] Output: Urine 650 / 650 Wound Vac Amount 150 / 150 Posterior Sacrum 150 / 150 Other: Mode Setting Posterior Sacrum Continuous # Voids 5 # Urine Diapers 1 Date of Last Bowel Movement 08/24/18 # Bowel Movements 4 <Paxton Hilliard E - Last Filed: 08/24/18 15:34> Results - Labs CBC & Chem 7: 08/24/18 06:10 08/24/18 06:10 Labs: Laboratory Results - last 24 hr 08/23/18 08/23/18 08/23/18 14:35 14:35 14:35 CBC w Diff Slide review pending WBC 8.6 RBC 2.03 L Hgb 5.8 L* Hct 17.7 L* MCV 87.3 MCH 28.9 MCHC 33.0 RDW 16.4 Plt Count 348 D MPV 9.1 Prelim Diff (Auto) Neut % (Auto) 72.9 H Lymph % (Auto) 20.5 [place] % (Auto) 6.1 Eos % (Auto) 0.2 Baso % (Auto) 0.3 Neut # (Auto) 6.3 Lymph # (Auto) 1.8 [place] # (Auto) 0.5 Eos # (Auto) 0.0 Baso # (Auto) 0.0 WBC Differential . Diff Scan Auto diff confirmed Differential Comment . Platelet Estimate Normal Platelet Morphology Normal PT 10.0 INR 1.0 APTT 22.6 L Sodium Potassium Chloride Carbon Dioxide Anion Gap BUN Creatinine Estimated GFR POC Glucose Random Glucose Calcium Total Bilirubin AST ALT Alkaline Phosphatase Total Protein Albumin Blood Type O Positive Antibody Screen Negative MTS Gel Crossmatch See Detail Bld Prod Order Comment 08/23/18 08/23/18 08/24/18 14:35 21:34 06:10 CBC w Diff WBC 6.6 RBC 2.35 L Hgb 6.8 L* Hct 20.3 L* MCV 86.2 MCH 29.0 MCHC 33.7 RDW 16.3 Plt Count 235 D MPV 8.4 Prelim Diff (Auto) Pet Counselor Neut % (Auto) 60.3 Lymph % (Auto) 29.1 [place] % (Auto) 9.3 H Eos % (Auto) 0.8 Baso % (Auto) 0.5 Neut # (Auto) 4.0 Lymph # (Auto) 1.9 [place] # (Auto) 0.6 Eos # (Auto) 0.1 Baso # (Auto) 0.0 WBC Differential . Diff Scan Differential Comment Auto diff final Platelet Estimate Platelet Morphology PT INR APTT Sodium 136 Potassium 3.7 Chloride 103 Carbon Dioxide 20.5 L Anion Gap 13 BUN 31 H Creatinine 0.92 Estimated GFR 60 L POC Glucose 114 H Random Glucose 134 H Calcium 8.9 Total Bilirubin 0.4 AST 9 L ALT 11 Alkaline Phosphatase 79 Total Protein 5.5 L Albumin 2.7 L Blood Type Antibody Screen MTS Gel Crossmatch Bld Prod Order Comment 08/24/18 08/24/18 08/24/18 06:10 06:58 08:38 CBC w Diff WBC RBC Hgb Hct MCV MCH MCHC RDW Plt Count MPV Prelim Diff (Auto) Neut % (Auto) Lymph % (Auto) [place] % (Auto) Eos % (Auto) Baso % (Auto) Neut # (Auto) Lymph # (Auto) [place] # (Auto) Eos # (Auto) Baso # (Auto) WBC Differential Diff Scan Differential Comment Platelet Estimate Platelet Morphology PT INR APTT Sodium 144 Potassium 3.7 Chloride 111 H D Carbon Dioxide 26.3 Anion Gap 7 BUN 19 H Creatinine 0.92 Estimated GFR 60 L POC Glucose 115 H Random Glucose 87 Calcium 8.6 Total Bilirubin AST ALT Alkaline Phosphatase Total Protein Albumin Blood Type Antibody Screen MTS Gel Crossmatch See Detail Bld Prod Order Comment <Juany Hoover - Last Filed: 08/24/18 11:57> - Labs CBC & Chem 7: 08/24/18 06:10 08/24/18 06:10 Labs: Laboratory Results - last 24 hr 08/23/18 08/23/18 08/23/18 14:35 14:35 21:34 WBC RBC Hgb Hct MCV MCH MCHC RDW Plt Count MPV Prelim Diff (Auto) Neut % (Auto) Lymph % (Auto) [place] % (Auto) Eos % (Auto) Baso % (Auto) Neut # (Auto) Lymph # (Auto) [place] # (Auto) Eos # (Auto) Baso # (Auto) WBC Differential . Diff Scan Auto diff confirmed Differential Comment Platelet Estimate Normal Platelet Morphology Normal Sodium Potassium Chloride Carbon Dioxide Anion Gap BUN Creatinine Estimated GFR POC Glucose 114 H Random Glucose Calcium Blood Type O Positive Antibody Screen Negative MTS Gel Crossmatch See Detail Bld Prod Order Comment 08/24/18 08/24/18 08/24/18 06:10 06:10 06:58 WBC 6.6 RBC 2.35 L Hgb 6.8 L* Hct 20.3 L* MCV 86.2 MCH 29.0 MCHC 33.7 RDW 16.3 Plt Count 235 D MPV 8.4 Prelim Diff (Auto) Pet Counselor Neut % (Auto) 60.3 Lymph % (Auto) 29.1 [place] % (Auto) 9.3 H Eos % (Auto) 0.8 Baso % (Auto) 0.5 Neut # (Auto) 4.0 Lymph # (Auto) 1.9 [place] # (Auto) 0.6 Eos # (Auto) 0.1 Baso # (Auto) 0.0 WBC Differential . Diff Scan Differential Comment Auto diff final Platelet Estimate Platelet Morphology Sodium 144 Potassium 3.7 Chloride 111 H D Carbon Dioxide 26.3 Anion Gap 7 BUN 19 H Creatinine 0.92 Estimated GFR 60 L POC Glucose Random Glucose 87 Calcium 8.6 Blood Type Antibody Screen MTS Gel Crossmatch See Detail Bld Prod Order Comment 08/24/18 08/24/18 08:38 12:04 WBC RBC Hgb Hct MCV MCH MCHC RDW Plt Count MPV Prelim Diff (Auto) Neut % (Auto) Lymph % (Auto) [place] % (Auto) Eos % (Auto) Baso % (Auto) Neut # (Auto) Lymph # (Auto) [place] # (Auto) Eos # (Auto) Baso # (Auto) WBC Differential Diff Scan Differential Comment Platelet Estimate Platelet Morphology Sodium Potassium Chloride Carbon Dioxide Anion Gap BUN Creatinine Estimated GFR POC Glucose 115 H 112 H Random Glucose Calcium Blood Type Antibody Screen MTS Gel Crossmatch Bld Prod Order Comment <Paxton Hilliard E - Last Filed: 08/24/18 15:34> Assessment and Plan (1) Anemia due to GI blood loss Status: Acute Code(s): D50.0 - Iron deficiency anemia secondary to blood loss (chronic) (2) Acute upper gastrointestinal bleeding Status: Acute Code(s): K92.2 - Gastrointestinal hemorrhage, unspecified - Plan 1. Acute GI blood loss secondary to bleeding anastomotic ulcer at the JG junction. Hemoglobin 6.8 after 2 units packed red blood cells, currently being transfused 2 more units. Schedule EGD for today. Patient was seen and examined by myself and Dr. Hilliard in this note is written on his behalf. - Attending Attestation Dr. Hilliard <Juany Hoover - Last Filed: 08/24/18 11:57> (1) Anemia due to GI blood loss Status: Acute Code(s): D50.0 - Iron deficiency anemia secondary to blood loss (chronic) (2) Acute upper gastrointestinal bleeding Status: Acute Code(s): K92.2 - Gastrointestinal hemorrhage, unspecified - Attending Attestation Patient seen and examined Agree with above Continue with current supportive care Monitor labs We will proceed with EGD and a colonoscopy next <Paxton Hilliard E - Last Filed: 08/24/18 15:34>
[2018-08-24] MEDS ORDERED: Lidocaine PF 1% Inj 5 ML Syringe OTHER ONE (14:32)
--- NOTE | 2018-08-24 15:38 | P.PCN ---
Date of procedure: 08/24/18 Pre-op diagnosis: Profound anemia, history of peptic ulcer disease, history of gastric bypass Procedure: PROCEDURE PERFORMED EGD followed by colonoscopy with biopsy PROCEDURE: The procedure, risks and benefits were discussed with Patient/POA and informed consent was obtained. Anesthesia sedated Patient with Diprivan. Patient was placed in the left lateral decubitus position. EGD: The Pentax videoscope was introduced through the oropharynx and advanced to the second portion of the duodenum under direct visualization. Retroflexion was performed in the stomach. FINDINGS: The esophagus this appeared to be unremarkable and within normal limits The stomach there was a small hiatal hernia there was a small gastric pouch with a clean anastomosis that was wide open with no inflammation and no ulceration this is consistent with the patient's history of gastric bypass I was not able to to do retroflexion in the gastric pouch The small bowel following the gastric pouch both the efferent and afferent loops appear to be unremarkable and within normal limits Colonoscopy: The Pentax videoscope was introduced through the rectum and advanced to cecum where the ileocecal valve and appendiceal orifice were identified. Retroflexion was performed in the rectum. Colonic prep was good FINDINGS: Colonic withdrawal time greater than 6 minutes. As the scope was slowly withdrawn colonic mucosa was carefully inspected the patient was noted to have slight mild erythema with what looks like a whitish exudate at the edge of 1 of the diverticuli in the sigmoid this is of unclear significance this was biopsied the patient was noted to have moderately severe diverticulosis of the sigmoid region colonoscopy was otherwise unremarkable so his retroflexion and rectal examination ESTIMATED BLOOD LOSS: None SPECIMENS REMOVED: Colon biopsy COMPLICATIONS: None IMPRESSION: Small hiatal hernia History of gastric bypass Erythemic patch in the sigmoid Diverticulosis PLAN: Await biopsies Recommend small bowel follow-through Recommend outpatient capsule endoscopy if the small bowel follow-through is unremarkable Continue with current supportive care If all is stable by tomorrow then patient may be discharged from a GI standpoint follow-up as an outpatient for capsule endoscopy Will also be checking iron studies and most likely the patient will be needing iron supplementation and possibly even an iron infusion as this is a common occurrence in patients with gastric bypass Anesthesia: DAVID Surgeon: Paxton Hilliard Condition: stable Disposition: floor
--- NOTE | 2018-08-24 15:57 | P.PNIM ---
Subjective Interval history: Patient laying down in bed. Currently no complaint of abdominal pain. She does not have any specific complaints, she is asking me about the plan for her GI bleed. Physical Exam Vital signs: Vital Signs 08/23/18 16:15 08/23/18 19:50 08/23/18 20:28 Temperature 98.6 F 98.8 F Pulse Rate 81 89 93 H Respiratory Rate 22 18 20 Blood Pressure 116/52 L 167/76 H 123/60 Pulse Oximetry 96 100 08/23/18 21:17 08/23/18 23:58 08/24/18 00:05 Temperature 98.6 F 98.6 F Pulse Rate 89 81 80 Respiratory Rate 20 18 Blood Pressure 124/57 L 122/55 L Pulse Oximetry 100 99 08/24/18 03:59 08/24/18 08:00 08/24/18 08:44 Temperature 98.1 F Pulse Rate 86 72 Respiratory Rate 18 Blood Pressure 124/57 L Pulse Oximetry 97 95 08/24/18 09:45 08/24/18 10:04 08/24/18 12:00 Temperature 98.2 F 98.0 F 98.5 F Pulse Rate 97 H 72 77 Respiratory Rate 16 17 16 Blood Pressure 112/54 L 139/62 131/66 Pulse Oximetry 98 Intake & Output 08/23/18 08/24/18 08/24/18 18:59 06:59 18:59 Intake Total 1900 / 1900 1000 / 1000 Output Total 800 / 800 Balance 1100 / 1100 1000 / 1000 Weight 84 kg 81.8 kg Intake: IV 1100 / 1100 1000 / 1000 Protonix Inj 80 MG In NS Inj 100 / 100 100 ML @ 10 mls/hr IV.CONT CONT [facility] Rx#:[id number] NS Inj 1,000 ML @ 125 mls/hr IV 1000 / 1000 1000 / 1000 .CONT .Q8H [facility] Rx#:[id number] Intake (Blood Product) Amt 800 / 800 0 / 0 Rbc As-3 Leukoreduced Unit 0 / 0 [id number] Rbc As-3 Leukoreduced Unit 400 / 400 [id number] Rbc As-3 Leukoreduced Unit 400 / 400 [id number] Output: Urine 650 / 650 Wound Vac Amount 150 / 150 Posterior Sacrum 150 / 150 Other: Mode Setting Posterior Sacrum Continuous # Voids 5 # Urine Diapers 1 Date of Last Bowel Movement 08/24/18 # Bowel Movements 4 Narrative: General patient in no acute distress HEENT extraocular movements are intact, clear oropharyngeal mucosa, no JVD Cardiovascular S1-S2 audible, RRR, no murmurs rubs or gallops Respiratory clear to auscultation bilaterally Abdomen soft, nontender, normal bowel sounds Extremities no edema 2+ distal pulses in bilateral upper and lower extremities Neuro there are no focal neurological deficits Results Labs CBC & Chem 7: 08/24/18 06:10 08/24/18 06:10 Assessment and Plan (1) Anemia due to GI blood loss: Code(s): D50.0 - Iron deficiency anemia secondary to blood loss (chronic) Status: Acute (2) Acute upper gastrointestinal bleeding: Code(s): K92.2 - Gastrointestinal hemorrhage, unspecified Status: Acute Plan This patient is a 73-year-old female with a history of breast cancer, diabetes, history of gastric ulcer, dyslipidemia, hypertension, coronary artery disease status post stent placement, gastric bypass. Patient presented with complaints of generalized weakness as well as melenic stools. She had a history of a similar presentation in the past where an EGD was done and showed a gastric ulcer. She was stabilized and sent home on Protonix. The patient says that she took the Protonix for approximately a week and is now having recurrent symptoms. She presented to [facility] with a hemoglobin of 5.8. 1. Acute systematic blood loss anemia likely secondary to upper GI bleed. Patient presents with symptoms mentioned above. Recent upper GI bleed and discharged on 08/12/2018. Hemoglobin 5.8, given 2 units PRBCs. Started on Protonix drip GI was consulted to evaluate the patient. No significant findings were found on the EGD or colonoscopy. Recommendations from GI are for a small bowel follow-through. Patient should also have outpatient capsule endoscopy if the small bowel follow-through is unremarkable. Patient will likely be discharged tomorrow and she can have an outpatient capsule endoscopy done. We will follow-up iron studies. HGB this morning was 6.8, she is receiving 2 units prbcs, will follow up am labs. 2. HTN/DMII Monitor blood pressure, currently stable Sliding scale, accu checks 3. Hx breast cancer Continue anastrozole SCDs for DVT prophylaxis.
[2018-08-24 21:19] LABS: Bacteria,Urine Rare /hpf; Bilirubin,Urine Negative (Negative); Clarity,Urine Clear (Clear); Color,Urine Colorless (Yellw/Straw); Glucose,Urine (UA) Negative (Negative); Leukocyte Esterase,Urine Negative (Negative); Nitrite,Urine Negative (Negative); Specific Gravity,Urine 1.005 (1.002-1.035); Squamous Epithelial Cell,Urine 1 /hpf (0-5)
[2018-08-24 21:28] LABS: Hematocrit 28.6 % (35.0-46.0); Hemoglobin 9.5 gm/dL (11.6-15.3)
[2018-08-25] MEDS: Pantoprazole Inj 80 MG in Sodium Chlor 0.9% Inj 100 ML IV.CONT SCH ×2 (02:23→12:59)
[2018-08-25 05:51] LABS: Hematocrit 28.1 % (35.0-46.0); Hemoglobin 9.4 gm/dL (11.6-15.3); Mean Corpuscular HGB Conc 33.4 % (32.0-36.0); Mean Corpuscular Hemoglobin 28.7 pg (27.0-34.0); Mean Corpuscular Volume 85.8 fL (80.0-100.0); Mean Platelet Volume 8.9 fL (7.0-11.0); Platelet Count 202 th/mm3 (150-450); Red Blood Count 3.27 mil/mm3 (4.00-5.30); Red Cell Distribution Width 15.7 % (11.6-17.2); White Blood Count 5.6 th/mm3 (4.0-11.0)
[2018-08-25 06:22] LABS: Albumin 2.4 g/dL (3.4-5.0); Anion Gap 7 meq/L (5-15); Aspartate Aminotransferase 19 U/L (15-37); Blood Urea Nitrogen 10 mg/dL (7-18); Calcium 8.2 mg/dL (8.5-10.1); Carbon Dioxide 25.9 meq/L (21.0-32.0); Chloride 111 meq/L (98-107); Glomerular Filtration Rate 69 mL/min (>89); Glucose,Random 85 mg/dL (74-106); Potassium 3.4 meq/L (3.5-5.1); Sodium 144 meq/L (136-145)
[2018-08-25 06:25] LABS: Alanine Aminotransferase 12 U/L (10-53); Alkaline Phosphatase 74 U/L (45-117); Total Protein 5.2 g/dL (6.4-8.2)
[2018-08-25] MEDS: Insulin NovoLOG Aspart Correctional Sugar Inj SQ SCH ×2 (08:59→12:56)
--- NOTE | 2018-08-25 09:59 | FL ---
EXAM DATE: 08/25/2018 9:56 AM EST AGE/SEX: 73 years / Female INDICATIONS: Abdominal pain, History of GI bleed CLINICAL DATA: This is the patient's initial encounter. Patient reports that signs and symptoms have been present for 4 - 6 days and indicates a pain score of 4/10. MEDICAL/SURGICAL HISTORY: Gastrointestinal bleed. Gastric bypass. COMPARISON: [facility] – [place] [facility]STR[facility]RAFIN GI SERIES, 05/18/2011. . FLUORO TIME: .7 IMAGE COUNT: 16 RADIATION DOSE: 1361.0 DAP CONTRAST: FINDINGS: Preliminary film is unremarkable. The stomach is grossly unremarkable. Examination of the small bowel demonstrates normal mucosal pattern involving the jejunum and ileum. There is no evidence of mass or obstruction. No intraluminal filling defects are identified. Small bowel transit time is normal at minutes. Multiple fluoroscopic spot films show no abnormality in spi te of the tenderness in the right mid and lower quadrant CONCLUSION: Negative small bowel follow-through the transit time of slightly over one hour Electronically signed by: Bhanu Chamorro MD Board Certified Radiologist 08/25/2018 9:57 AM EST
[2018-08-25 10:19] VITALS: RESP 16
[2018-08-25] MEDS: Anastrozole 1 MG Tablet PO SCH (10:27)
--- NOTE | 2018-08-25 10:56 | P.PNIM ---
Subjective Interval history: Patient laying down in bed. No acute distress. No complaints from the patient this morning. Physical Exam Vital signs: Vital Signs 08/24/18 12:00 08/24/18 16:09 08/24/18 16:32 Temperature 98.5 F 97.8 F 98.2 F Pulse Rate 77 62 68 Respiratory Rate 16 16 15 Blood Pressure 131/66 120/56 L 120/56 L Pulse Oximetry 98 99 98 08/24/18 19:00 08/24/18 20:00 08/24/18 20:20 Temperature 98.7 F Pulse Rate 74 69 Respiratory Rate 20 Blood Pressure 139/65 Pulse Oximetry 97 95 08/25/18 00:00 08/25/18 04:00 08/25/18 08:00 Temperature 98.3 F 98 F 98.2 F Pulse Rate 70 68 65 Respiratory Rate 18 18 16 Blood Pressure 115/56 L 128/60 140/63 Pulse Oximetry 96 97 98 Intake & Output 08/24/18 08/25/18 08/25/18 18:59 06:59 18:59 Intake Total 2150 / 2150 1100 / 1100 Balance 2150 / 2150 1100 / 1100 Weight 82.3 kg Intake: IV 1350 / 1350 1100 / 1100 Protonix Inj 80 MG In NS Inj 100 / 100 100 / 100 100 ML @ 10 mls/hr IV.CONT CONT GHULAM Rx#:[id number] NS Inj 1,000 ML @ 125 mls/hr IV 1000 / 1000 .CONT .Q8H GHULAM Rx#:[id number] NS Inj 250 ML @ 15 mls/hr IV. 250 / 250 SIG ONCE GHULAM Rx#:[id number] Intake (Blood Product) Amt 800 / 800 Rbc As-3 Leukoreduced Unit 400 / 400 [id number] Rbc As-3 Leukoreduced Unit 400 / 400 [id number] Other: # Voids 3 Date of Last Bowel Movement 08/24/18 08/24/18 08/24/18 Narrative: General patient in no acute distress HEENT extraocular movements are intact, clear oropharyngeal mucosa, no JVD Cardiovascular S1-S2 audible, RRR, no murmurs rubs or gallops Respiratory clear to auscultation bilaterally Abdomen soft, nontender, normal bowel sounds Extremities no edema 2+ distal pulses in bilateral upper and lower extremities Neuro there are no focal neurological deficits Results Labs CBC & Chem 7: 08/25/18 04:56 08/25/18 04:56 Imaging Imaging: Impressions Upper GI and Small Bowel X-Ray 08/25/18 00:00 CONCLUSION: Negative small bowel follow-through the transit time of slightly over one hour Assessment and Plan (1) Anemia due to GI blood loss: Code(s): D50.0 - Iron deficiency anemia secondary to blood loss (chronic) Status: Acute (2) Acute upper gastrointestinal bleeding: Code(s): K92.2 - Gastrointestinal hemorrhage, unspecified Status: Acute Plan This patient is a 73-year-old female with a history of breast cancer, diabetes, history of gastric ulcer, dyslipidemia, hypertension, coronary artery disease status post stent placement, gastric bypass. Patient presented with complaints of generalized weakness as well as melenic stools. She had a history of a similar presentation in the past where an EGD was done and showed a gastric ulcer. She was stabilized and sent home on Protonix. The patient says that she took the Protonix for approximately a week and is now having recurrent symptoms. She presented to [facility] with a hemoglobin of 5.8. 08/25/18 Patient evaluated, after another two units of blood yesterday Hgb is stable at 9.5 No active signs of bleeding. EGD/Colonoscopy didn't show evidence of acute bleeding. Small bowel follow through today is also negative for any signficant findings. Plan is for patient to follow up with GI outpt in 1-2 weeks and she should be scheduled for a capsule endoscopy as per GI recs Continue protonix po bid which patient already has at home. Hold aspirin for now given the recent bleed. Patient does have coronary artery disease and a stent in the past. If no further bleeding and ok with GI after follow up then aspirin can be restarted. She is at risk of bleeding as this is her second admission over the past few weeks for a GI bleed. Patient will be discharged home today. She was advised to return to the ED if she begins to experience black or bloody stools, dizziness, or fatigue. Follow up with pcp and hgb should be checked within a week. These instructions were given to the patient in detail prior to her discharge. Avoid nsaids. 08/24/18 1. Acute systematic blood loss anemia likely secondary to upper GI bleed. Patient presents with symptoms mentioned above. Recent upper GI bleed and discharged on 08/12/2018. Hemoglobin 5.8, given 2 units PRBCs. Started on Protonix drip GI was consulted to evaluate the patient. No significant findings were found on the EGD or colonoscopy. Recommendations from GI are for a small bowel follow-through. Patient should also have outpatient capsule endoscopy if the small bowel follow-through is unremarkable. Patient will likely be discharged tomorrow and she can have an outpatient capsule endoscopy done. We will follow-up iron studies. HGB this morning was 6.8, she is receiving 2 units prbcs, will follow up am labs. 2. HTN/DMII Monitor blood pressure, currently stable Sliding scale, accu checks 3. Hx breast cancer Continue anastrozole SCDs for DVT prophylaxis.
[2018-08-25 13:07] VITALS: BP 140/59; PULSE 73; TEMP 98.4; O2SAT 97
== END 2018-08-25 15:00 | disposition home or self-care (01) | DRG 812 ==
LOC: PHED 13:50 → PHEDA 15:32 → PH3 16:20 → N07 19:49
PROVIDERS: ADMIT Hospitalist; ATTEND Hospitalist
PROC: PANENDO (2018-08-24 14:32)
PROC: COLONOS (2018-08-24 14:32)
DX: C50.919 Malignant neoplasm of unspecified site of unspecified female breast; Z79.82 Long term (current) use of aspirin; Z98.84 Bariatric surgery status; Z79.811 Long term (current) use of aromatase inhibitors; K44.9 Diaphragmatic hernia without obstruction or gangrene; I25.10 Atherosclerotic heart disease of native coronary artery without angina pectoris; Z79.84 Long term (current) use of oral hypoglycemic drugs; R53.1 Weakness; E78.5 Hyperlipidemia, unspecified; E11.9 Type 2 diabetes mellitus without complications; Z87.11 Personal history of peptic ulcer disease; Z87.891 Personal history of nicotine dependence; D50.0 Iron deficiency anemia secondary to blood loss (chronic); K57.30 Diverticulosis of large intestine without perforation or abscess without bleeding; K92.2 Gastrointestinal hemorrhage, unspecified; I10 Essential (primary) hypertension; Z95.5 Presence of coronary angioplasty implant and graft
CPT/HCPCS: 36430; 74250; 80048; 80053; 81001; 82948; 82962; 83735; 85014; 85018; 85025; 85027; 85610; 85730; 86850; 86900; 86901; 86923; 88305; 90774; 96374; 99285; C8952; C9113; J1940; J2405; J2704; J7030; J7050; J7120; P9016